=== PATIENT | male | born 1940 | race Caucasian/White ===

== ENCOUNTER 2019-10-04 22:29 | Emergency (ER) | payer MEDICARE, OTHER ==
[2019-10-04 23:12] LABS: Bacteria/HPF 3+ HPF (None Seen); Bilirubin Negative (Negative); Blood, Urine 2+ (Negative); Clarity Extra Turbid (Clear); Glucose, Urine (Dipstick) Normal (Negative); Ketone, Urine Negative (Negative); Leukocyte 500 Leu/uL (Negative); Nitrite Negative (Negative); Protein, Urine (Dipstick) 100 mg/dL (Neg-Trace); RBC/HPF Greater than 50 HPF (0-3); Renal Epithelial 0-3 HPF (None Seen); Specific Gravity, Urine 1.017 (1.002-1.036); Squamous Epithelial None Seen HPF (0-3); Urobilinogen Normal mg/dL (Less than 2); WBC/HPF Greater than 50 HPF (0-3); pH, Urine 5.5 (5.0-9.0)
== END 2019-10-04 23:27 | disposition home or self-care (01) ==
LOC: ERS 22:29
DX: R33.9 Retention of urine, unspecified (principal); E78.5 Hyperlipidemia, unspecified; R10.819 Abdominal tenderness, unspecified site; Z79.899 Other long term (current) drug therapy
CPT/HCPCS: 51702; 81003; 81015; 87077; 87086; 87186

== ENCOUNTER 2019-10-12 06:43 | Outpatient (CLI) | payer MEDICARE, OTHER ==
[2019-10-12 16:10] LABS: Hemoglobin 12.8 g/dL (14.0-18.0); Mean Corpuscular HGB CONC 32.5 g/dL (32.0-36.0); Mean Corpuscular Hemoglobin 28.8 pg (27.0-31.0); Mean Corpuscular Volume 88.8 fL (78.0-98.0); Mean Platelet Volume 7.9 fL (7.4-10.4); Platelet Count 198 thou/uL (130-400); RBC Distribution Width 14.4 % (11.5-14.5); Red Blood Cell (RBC) Count 4.45 mill/uL (4.70-6.10); White Blood Cell (WBC) Count 6.1 thou/uL (4.8-10.8)
[2019-10-12 16:24] LABS: Anion Gap 15 mmol/L (10-20); BUN (Urea Nitrogen) 24 mg/dL (8.4-25.7); Calc. Creatinine Clearance 0 mL/min (70-130); Calcium 9.3 mg/dL (7.8-10.44); Carbon Dioxide 20 mmol/L (23-31); Chloride 110 mmol/L (98-107); Estimated GFR-MDRD 60; Glucose 95 mg/dL (83-110); Sodium 141 mmol/L (136-145)
[2019-10-13 12:17] LABS: SARS-CoV-2 MS2 Positive; SARS-CoV-2 N Gene Negative; SARS-CoV-2 S Gene Negative; SARS-CoV-2 orf1ab Negative
== END 2019-10-12 06:44 | disposition home or self-care (01) ==
LOC: LABBT 06:43
PROVIDERS: ATTEND Urology
DX: Z01.818 Encounter for other preprocedural examination (principal); Z11.59 Encounter for screening for other viral diseases; N40.0 Benign prostatic hyperplasia without lower urinary tract symptoms
CPT/HCPCS: 80048; 81001; 85027; 87077; 87086; 87186; 93005; U0003; 87635; 93010

== ENCOUNTER 2019-10-16 10:11 | Observation (INO) | payer MEDICARE, OTHER ==
[2019-10-16] MEDS ORDERED: Levofloxacin 500 mg/D5W 100 ml Premix Bag ONE (10:49)
[2019-10-16] MEDS ORDERED: Fentanyl 100 MCG/2 ML VIAL ONE (11:39)
[2019-10-16] MEDS ORDERED: Dexamethasone 20 MG/5 ML VIAL ONE (13:41)
[2019-10-16] MEDS ORDERED: PHENYLEPHRINE-NS 100 MCG/ML 10 ML SYRINGE ONE (13:41)
[2019-10-16] MEDS ORDERED: EPHEDRINE 25 MG/5 ML SYRINGE ONE (13:41)
[2019-10-16] MEDS ORDERED: Ketorolac Tromethamine 30 MG/ML VIAL ONE (13:41)
[2019-10-16] MEDS ORDERED: PROPOFOL 200 MG/20 ML VIAL ONE (13:41)
[2019-10-16] MEDS ORDERED: Lidocaine 1% PF 5 ML VIAL ONE (13:41)
[2019-10-16] MEDS ORDERED: Ondansetron PF 4 MG/2 ML Vial ONE (13:41)
--- NOTE | 2019-10-16 14:48 | OP ---
DATE OF PROCEDURE: 10/16/2019 PREOPERATIVE DIAGNOSIS: Enlarged prostate with lower urinary tract symptoms. POSTOPERATIVE DIAGNOSIS: Enlarged prostate with lower urinary tract symptoms. PROCEDURE PERFORMED: Bipolar transurethral resection of prostate. ANESTHESIA: General. COMPLICATIONS: None. ESTIMATED BLOOD LOSS: Minimal. SPECIMEN: Prostate chips. DESCRIPTION OF PROCEDURE: After informed consent, the patient was taken to the operating room, transferred to the table on his own power. Anesthesia was established. A time-out was performed, showing the correct patient, site, and procedure. Preoperative antibiotics were administered. He was prepped and draped in the lithotomy position. The rigid resectoscope was advanced through the urethra noting normal course and caliber of the urethra into the prostate, noting large coapting lateral lobes and a high bladder neck. The bladder was then entered and systematically examined noting moderate trabeculation with no mucosal abnormalities or large diverticula. Both ureters were normal in appearance. I began by resecting the bladder neck starting at midline from the bladder neck back to the verumontanum. I then resected the left lobe from about the 1 o'clock position down to midline and then the right lobe from the 11 o'clock down to midline. Anterior resecting tissue was then removed. Meticulous hemostasis was then achieved. Prostate chips were removed with the Greenext evacuator. Care was taken throughout the procedure to avoid resection distal to the verumontanum. The bladder was then reinspected noting no further prostate chips. Both ureters were uninvolved with resection. There was no active bleeding and so the scope was removed and a 22-Malaysian 3-way catheter placed with 30 mL instilled in the balloon. This was irrigated noting no bleeding or obstruction. This was then connected to continuous bladder irrigation. The patient was then awoken from anesthesia, transferred back to his hospital bed and taken to PACU in stable condition, where he will be admitted overnight for observation. Job ID: [id number]
[2019-10-16] MEDS ORDERED: HYDROcodone/Acetaminophen 10/325 mg Tablet PO PRN ×2 (17:17→17:18)
[2019-10-16] MEDS ORDERED: diphenhydrAMINE 50 MG/ML VIAL IVP PRN (17:18)
[2019-10-16] MEDS ORDERED: diphenhydrAMINE 25 MG CAP PO PRN (17:19)
[2019-10-16] MEDS ORDERED: Zolpidem Tartrate 5 MG TAB PO PRN (17:19)
[2019-10-16] MEDS ORDERED: Hyoscyamine Sulfate SL 0.125 mg Tablet SL PRN (17:20)
[2019-10-16] MEDS ORDERED: Ondansetron PF 4 MG/2 ML Vial IVP PRN (17:21)
[2019-10-16] MEDS ORDERED: Oxybutynin 5 MG TAB PO PRN (17:21)
[2019-10-16] MEDS ORDERED: hydrALAZINE 20 MG/ML VIAL SLOW IVP PRN (17:22)
[2019-10-16] MEDS ORDERED: Vancomycin HCl 25 MG/ML Oral PO SCH (17:30)
[2019-10-16] MEDS: Ketorolac Tromethamine 30 MG/ML VIAL IVP SCH (18:10)
[2019-10-16 20:09] VITALS: BMI 28.9
[2019-10-16] MEDS: Sodium Chloride 0.9% 1,000 ML IV SCH (20:25)
[2019-10-16] MEDS: Docusate 100 MG CAP PO SCH (20:26)
[2019-10-16] MEDS ORDERED: Atorvastatin Calcium 20 MG TAB PO SCH (21:00)
[2019-10-17] MEDS: Ketorolac Tromethamine 30 MG/ML VIAL IVP SCH ×3 (00:19→12:43)
[2019-10-17] MEDS: Sodium Chloride 0.9% 1,000 ML IV SCH ×2 (03:36→12:43)
[2019-10-17] MEDS: Levothyroxine Sodium 75 MCG TAB PO SCH ×2 (05:04→05:06)
[2019-10-17] MEDS: Docusate 100 MG CAP PO SCH (08:42)
[2019-10-17] MEDS ORDERED: Aspirin 81 mg Enteric Coated Tablet PO SCH (09:00)
[2019-10-17] MEDS ORDERED: Lactinex Tablet PO SCH (09:00)
[2019-10-17 12:03] VITALS: BP 131/75; TEMP 97.6
--- NOTE | 2019-10-19 13:07 | DIS ---
DATE OF ADMISSION: 10/16/2019 DATE OF DISCHARGE: 10/17/2019 CHIEF COMPLAINT: Urinary retention. DISCHARGE DIAGNOSES: Enlarged prostate with lower urinary tract symptoms, urinary retention. HOSPITAL COURSE: The patient underwent an uncomplicated bipolar transurethral resection of the prostate. He was managed overnight with CBI, which remained clear throughout the evening on slow drip. The following morning, CBI was turned off with urine remaining clear. He was having no discomfort, and deemed stable for discharge home at that point. DISCHARGE PHYSICAL EXAMINATION: GENERAL: In no acute distress. HEART: Regular rate and rhythm. LUNGS: Unlabored breathing. ABDOMEN: Soft, nontender, nondistended. Trimble catheter in good position, draining clear urine, off CBI. SKIN: Warm and dry. NEUROLOGIC: Alert and oriented x3. DISCHARGE INSTRUCTIONS: Shower normally, light non-stressful activities, resume regular diet. Follow up next Tuesday for void trial. DISCHARGE MEDICATIONS: 1. Levaquin. 2. Oxybutynin. 3. Ibuprofen. 4. Tramadol. Job ID: [id number]
== END 2019-10-17 13:01 | disposition home or self-care (01) ==
LOC: SDC 10:11 → SJJU 13:29 → SDC 16:54 → SJJU 16:54
PROVIDERS: ADMIT Urology; ATTEND Urology
PROC: 0VT08ZZ Resection of Prostate, Via Natural or Artificial Opening Endoscopic (ICD-10-PCS; principal; 2019-10-16)
DX: N40.1 Benign prostatic hyperplasia with lower urinary tract symptoms (principal); I10 Essential (primary) hypertension; E03.9 Hypothyroidism, unspecified; Z79.82 Long term (current) use of aspirin; Z79.899 Other long term (current) drug therapy; Z91.041 Radiographic dye allergy status
CPT/HCPCS: 88305; 96361; 96374; 96376; G0378; J1100; J1885; J1956; J2405; J2704; J3010